=== PATIENT | female | born 1990 | race Caucasian/White ===

== ENCOUNTER → 2020-12-14 09:09 | Outpatient (BNVA) | payer OTHER, SELFPAY | PROVIDERS: Visit Provider Advanced Practice Midwife ==

== ENCOUNTER 2021-12-20 09:56 | Outpatient (REF) | payer OTHER, SELFPAY | END 2021-12-20 09:57 | disposition home or self-care (01) | LOC: HO.LAB 09:56 | PROVIDERS: Visit Provider Advanced Practice Midwife | DX: Z01.419 Encounter for gynecological examination (general) (routine) without abnormal findings (principal) | CPT/HCPCS: 88142 ==